=== PATIENT | female | born 1965 | race African-American/Black ===

== ENCOUNTER 2019-05-15 13:05 | Emergency (ER) | payer BC ==
[~2019-05-15] VITALS: Ht 167.6 cm; Wt 131.5 kg
[2019-05-15 13:06] VITALS: BP 193/85
[2019-05-15] MEDS ORDERED: PROTONIX40 M1 PO (13:11)
[2019-05-15] MEDS ORDERED: ERYTHROMYCIN E3.5 G3 OPHTHALMIC (13:59)
== END 2019-05-15 14:12 | disposition home or self-care (01) ==
LOC: ER 13:05
DX: H10.9 Unspecified conjunctivitis (principal); F17.210 Nicotine dependence, cigarettes, uncomplicated; Z90.710 Acquired absence of both cervix and uterus; Z88.5 Allergy status to narcotic agent